=== PATIENT | male | born 1990 | race Caucasian/White ===

== ENCOUNTER 2016-10-26 15:49 | Emergency (ER) | payer OTHER ==
[~2016-10-26] VITALS: Ht 182.9 cm; Wt 130.6 kg
[~2016-10-26 15:49] MED LIST: CELEXA20 MG PO; CILOXAN 0.100 DROP/5 BOTH EYES; CLARITIN; DESYREL100 MG PO; FLEXERIL10 MG PO; FLOVENT; IBUPROFEN200 M1 PO; MOTRIN800 MG PO; PREDNISONE10 M1 PO; PROAIR HFA8.5 GM IH; ULTRAM50 MG PO; VENTOLIN17 GM IH; ZITHROMAX Z-PA250 MG PO
[2016-10-26] MEDS ORDERED: AUGMENTIN500 MG PO (16:40)
[2016-10-26 16:44] VITALS: BP 125/69
== END 2016-10-26 16:52 | disposition home or self-care (01) ==
LOC: EXP 15:49 → EME 15:49 → EXP 16:52
PROC: 3E1B78Z Irrigation of Ear using Irrigating Substance, Via Natural or Artificial Opening (ICD-10-PCS; principal; 2016-10-26)
DX: H66.91 Otitis media, unspecified, right ear (principal); H61.21 Impacted cerumen, right ear; R05 Cough
CPT/HCPCS: 99281; 99284

== ENCOUNTER 2016-12-10 11:49 | Emergency (ER) | payer OTHER ==
[~2016-12-10] VITALS: Ht 182.9 cm; Wt 129.9 kg
[~2016-12-10 11:49] MED LIST changes: +AUGMENTIN500 MG PO
[2016-12-10] MEDS ORDERED: NAPROSYN500 MG PO (14:07)
[2016-12-10] MEDS ORDERED: AMOXICILLIN500 M1 PO (14:07)
[2016-12-10 14:14] VITALS: BP 148/83
== END 2016-12-10 14:19 | disposition home or self-care (01) ==
LOC: EME 11:49 → EXP 11:49
DX: H66.91 Otitis media, unspecified, right ear (principal); R51 Headache; F17.200 Nicotine dependence, unspecified, uncomplicated
CPT/HCPCS: 99281; 99284

== ENCOUNTER 2017-02-18 15:05 | Emergency (ER) | payer OTHER ==
[~2017-02-18] VITALS: Ht 182.9 cm; Wt 131.4 kg
[~2017-02-18 15:05] MED LIST changes: +AMOXICILLIN500 M1 PO; +NAPROSYN500 MG PO
[2017-02-18 15:20] VITALS: BP 156/100
[2017-02-19] MEDS ORDERED: FLEXERIL10 MG PO (12:35)
[2017-02-19] MEDS ORDERED: NAPROSYN500 MG PO (12:35)
[2017-02-19] MEDS ORDERED: LIDODERM 5% P1 PATCH TD (12:35)
== END 2017-02-18 19:10 | disposition left against medical advice (07) ==
LOC: EME 15:05
DX: M25.551 Pain in right hip (principal); M25.552 Pain in left hip; M54.5 Low back pain; Z53.21 Procedure and treatment not carried out due to patient leaving prior to being seen by health care provider

== ENCOUNTER 2017-02-19 11:30 | Emergency (ER) | payer OTHER ==
[~2017-02-19] VITALS: Ht 182.9 cm; Wt 130.8 kg
[2017-02-19] MEDS ORDERED: NAPROSYN500 MG PO (12:35)
[2017-02-19] MEDS ORDERED: FLEXERIL10 MG PO (12:35)
[2017-02-19] MEDS ORDERED: LIDODERM 5% P1 PATCH TD (12:35)
[2017-02-19 12:44] VITALS: BP 127/80
== END 2017-02-19 12:48 | disposition home or self-care (01) ==
LOC: EME 11:30
DX: G89.29 Other chronic pain (principal); M54.41 Lumbago with sciatica, right side; S39.012A Strain of muscle, fascia and tendon of lower back, initial encounter; X50.0XXA Overexertion from strenuous movement or load, initial encounter; Y99.0 Civilian activity done for income or pay; F17.200 Nicotine dependence, unspecified, uncomplicated; J45.909 Unspecified asthma, uncomplicated
CPT/HCPCS: 99281; 99284; J1100

== ENCOUNTER 2017-03-02 07:37 | Day surgery (SDC) | payer OTHER ==
[~2017-03-02] VITALS: Ht 182.9 cm; Wt 125.0 kg
[~2017-03-02 07:37] MED LIST changes: +LIDODERM 5% P1 PATCH TD
[2017-03-02 08:05] VITALS: BP 143/89
[2017-03-02 14:24] VITALS: BP 124/59
[2017-03-02 15:05] VITALS: BP 145/84
== END 2017-03-02 19:22 | disposition home or self-care (01) ==
LOC: SDC 07:37 → 2EAST 07:38 → SDC 09:55 → 2EAST 19:22
PROC: 0QSJ04Z Reposition Right Fibula with Internal Fixation Device, Open Approach (ICD-10-PCS; principal; 2017-03-02)
DX: S82.841A Displaced bimalleolar fracture of right lower leg, initial encounter for closed fracture (principal); W10.9XXA Fall (on) (from) unspecified stairs and steps, initial encounter; Y93.01 Activity, walking, marching and hiking; Y92.009 Unspecified place in unspecified non-institutional (private) residence as the place of occurrence of the external cause; F17.210 Nicotine dependence, cigarettes, uncomplicated
CPT/HCPCS: 73610; 76000; C1713; G0378; J0131; J1100; J1170; J2175; J2250; J2405; J2795; J3010; J7030

== ENCOUNTER 2017-03-25 19:24 | Emergency (ER) | payer OTHER ==
[~2017-03-25] VITALS: Ht 185.4 cm; Wt 131.4 kg
[2017-03-25] MEDS ORDERED: XARELTO15 MG PO (21:44)
[2017-03-25 22:07] VITALS: BP 140/83
== END 2017-03-25 22:08 | disposition home or self-care (01) ==
LOC: EME 19:24
DX: I82.4Z1 Acute embolism and thrombosis of unspecified deep veins of right distal lower extremity (principal); J45.909 Unspecified asthma, uncomplicated; F17.200 Nicotine dependence, unspecified, uncomplicated
CPT/HCPCS: 93971; 99281; 99284

== ENCOUNTER 2017-03-28 08:30 | Emergency (ER) | payer OTHER ==
[~2017-03-28] VITALS: Ht 182.9 cm; Wt 133.7 kg
[~2017-03-28 08:30] MED LIST changes: +XARELTO15 MG PO
[2017-03-28 10:22] LABS: EOSINOPHIL (%) 0 % (0-5); HEMATOCRIT 46.1 % (38.0-50.0); IMMATURE GRANULOCYTE (%) 0.3 % (0.0-0.7); INSTRUMENT ABS NEUTROPHIL CT 6.7 K/uL; LYMPHOCYTE COUNT 2.1 K/uL (1.0-2.8); MCH 29.2 PG (29.0-34.0); MCHC 33.6 G/DL (30.0-36.0); MEAN PLAT.VOLUME 11.2 uM^3 (9.0-12.4); MONOCYTE (%) 6.5 % (3-12); MONOCYTE COUNT 0.6 K/uL (0-0.8); NEUTROPHIL (%) 70.7 % (45-76); NEUTROPHIL COUNT 6.7 K/uL (1.8-6.4); PLATELET COUNT 222 K/uL (156-360); RBC DIS.WIDTH-CV 12.5 % (11.8-14.6); RBC DIS.WIDTH-SD 39.4 % (39-53); WHITE BLOOD COUNT 9.4 K/uL (4.1-10.2)
[2017-03-28 10:29] LABS: INTER. NORMALIZED RATIO 1.1; PROTHROMBIN TIME 10.9 (9.2-11.2)
[2017-03-28 10:33] LABS: CHLORIDE 109 mEq/L (99-109); POTASSIUM 3.6 mEq/L (3.7-5.4)
[2017-03-28 10:34] LABS: SODIUM 142 mEq/L (136-147)
[2017-03-28 10:35] LABS: GLUCOSE 100 mg/dL (70-99)
[2017-03-28 10:37] LABS: ANION GAP 11 MEQ/L (2-14)
[2017-03-28 10:39] LABS: GFR ESTIMATE (CALCULATED) > 59 mL/min/
[2017-03-28 10:40] LABS: UREA NITROGEN (BUN) 9 mg/dL (9-23)
[2017-03-28 12:20] VITALS: BP 122/79
== END 2017-03-28 12:21 | disposition home or self-care (01) ==
LOC: EME 08:30
PROVIDERS: Emergency Medicine
DX: R07.9 Chest pain, unspecified (principal); F17.200 Nicotine dependence, unspecified, uncomplicated; Z86.718 Personal history of other venous thrombosis and embolism; Z79.01 Long term (current) use of anticoagulants
CPT/HCPCS: 71275; 80048; 85025; 85610; 93005; 99281; 99284; J2270; J7030

== ENCOUNTER 2017-05-01 09:43 | Emergency (ER) | payer OTHER ==
[~2017-05-01] VITALS: Ht 182.9 cm; Wt 117.0 kg
[2017-05-01] MEDS ORDERED: ULTRAM50 MG PO (12:40)
[2017-05-01] MEDS ORDERED: FLEXERIL10 MG PO (12:40)
[2017-05-01 12:52] VITALS: BP 128/77
== END 2017-05-01 12:53 | disposition home or self-care (01) ==
LOC: EME 09:43
DX: S86.911A Strain of unspecified muscle(s) and tendon(s) at lower leg level, right leg, initial encounter (principal); X58.XXXA Exposure to other specified factors, initial encounter; Y93.01 Activity, walking, marching and hiking; M85.871 Other specified disorders of bone density and structure, right ankle and foot; Z79.01 Long term (current) use of anticoagulants; Z98.890 Other specified postprocedural states; F17.200 Nicotine dependence, unspecified, uncomplicated
CPT/HCPCS: 73610; 99281; 99284

== ENCOUNTER 2017-12-06 12:10 | Emergency (ER) | payer OTHER ==
[~2017-12-06] VITALS: Ht 185.4 cm; Wt 140.3 kg
[2017-12-06 13:44] LABS: HEMATOCRIT 43.4 % (38.0-50.0); HEMOGLOBIN 14.9 G/DL (12.5-16.6); MCH 30.3 PG (29.0-34.0); MCHC 34.3 G/DL (30.0-36.0); MCV 88.2 FL (86-99); PLATELET COUNT 208 K/uL (156-360); RBC DIS.WIDTH-CV 12.4 % (11.8-14.6); RBC DIS.WIDTH-SD 40.4 % (39-53); RED BLOOD COUNT 4.92 M/uL (4.00-5.50); WHITE BLOOD COUNT 6.9 K/uL (4.1-10.2)
[2017-12-06 13:54] LABS: ALBUMIN 3.9 g/dL (3.2-4.8); CHLORIDE 109 mEq/L (99-109); POTASSIUM 4.2 mEq/L (3.7-5.4); SODIUM 141 mEq/L (136-147)
[2017-12-06 13:57] LABS: GLUCOSE 79 mg/dL (70-99); TOTAL PROTEIN 6.9 g/dL (6.4-8.3)
[2017-12-06 13:59] LABS: TOTAL BILIRUBIN 0.6 mg/dL (0.0-1.0)
[2017-12-06 14:00] LABS: ALKALINE PHOSPHATASE 95 IU/L (3-129); GFR ESTIMATE (CALCULATED) > 59 mL/min/ (58.99-99999)
[2017-12-06 14:02] LABS: AST (GOT) 21 IU/L (2-34); UREA NITROGEN (BUN) 13 mg/dL (9-23)
[2017-12-06 14:03] LABS: ALT (GPT) 18 IU/L (3-49)
[2017-12-06 14:04] LABS: LIPASE 14 U/L (1.0-51.0)
[2017-12-06] MEDS ORDERED: FIORICET 50-301 EAC1 PO (15:08)
[2017-12-06] MEDS ORDERED: ZOFRAN ODT8 MG PO (15:08)
[2017-12-06] MEDS ORDERED: PEPCID20 MG PO (15:08)
[2017-12-06] MEDS ORDERED: CARAFATE1 GM PO (15:08)
[2017-12-06 15:22] VITALS: BP 155/75
== END 2017-12-06 15:23 | disposition home or self-care (01) ==
LOC: EME 12:10
PROVIDERS: Physician Assistant
DX: K29.70 Gastritis, unspecified, without bleeding (principal); R51 Headache; J45.909 Unspecified asthma, uncomplicated; F17.200 Nicotine dependence, unspecified, uncomplicated; Z86.718 Personal history of other venous thrombosis and embolism; F32.9 Major depressive disorder, single episode, unspecified
CPT/HCPCS: 80053; 83690; 85027; 99281; 99284

== ENCOUNTER 2017-12-24 13:38 | Emergency (ER) | payer OTHER ==
[~2017-12-24] VITALS: Ht 182.9 cm; Wt 141.3 kg
[~2017-12-24 13:38] MED LIST changes: +CARAFATE1 GM PO; +FIORICET 50-301 EAC1 PO; +PEPCID20 MG PO; +ZOFRAN ODT8 MG PO
[2017-12-24] MEDS ORDERED: TESSALON200 MG PO (14:54)
[2017-12-24] MEDS ORDERED: PEN-VEE K,VEET500 MG PO (14:54)
[2017-12-24] MEDS ORDERED: NAPROSYN500 MG PO (14:54)
[2017-12-24] MEDS ORDERED: GUAIFENESIN600 M1 PO (14:54)
[2017-12-24 15:07] VITALS: BP 128/75
== END 2017-12-24 15:10 | disposition home or self-care (01) ==
LOC: EME 13:38
DX: J02.0 Streptococcal pharyngitis (principal); J30.9 Allergic rhinitis, unspecified; F17.210 Nicotine dependence, cigarettes, uncomplicated
CPT/HCPCS: 87651 90; 99281; 99283; J1885

== ENCOUNTER 2018-03-03 22:01 | Emergency (ER) | payer OTHER ==
[~2018-03-03] VITALS: Ht 182.9 cm; Wt 135.4 kg
[~2018-03-03 22:01] MED LIST changes: +GUAIFENESIN600 M1 PO; +PEN-VEE K,VEET500 MG PO; +TESSALON200 MG PO
[2018-03-03 22:10] VITALS: BP 148/83
[2018-03-03] MEDS ORDERED: LIDODERM 5% P1 PATCH TD (23:02)
[2018-03-03] MEDS ORDERED: FLEXERIL10 MG PO (23:02)
== END 2018-03-03 23:23 | disposition home or self-care (01) ==
LOC: EME 22:01
DX: M54.9 Dorsalgia, unspecified (principal); M54.30 Sciatica, unspecified side; Z86.69 Personal history of other diseases of the nervous system and sense organs; Z87.39 Personal history of other diseases of the musculoskeletal system and connective tissue
CPT/HCPCS: 99281; 99283; J1885

== ENCOUNTER 2018-03-07 21:04 | Emergency (ER) | payer OTHER ==
[~2018-03-07] VITALS: Ht 182.9 cm; Wt 134.5 kg
[2018-03-07] MEDS ORDERED: KEFLEX500 MG PO (22:34)
[2018-03-07] MEDS ORDERED: BACTRIM,SEPT1 TABLET PO (22:34)
[2018-03-07 22:47] VITALS: BP 146/85
== END 2018-03-07 22:48 | disposition home or self-care (01) ==
LOC: EME 21:04
DX: L02.02 Furuncle of face (principal)
CPT/HCPCS: 99281; 99284

== ENCOUNTER 2018-03-19 22:10 | Emergency (ER) | payer OTHER ==
[~2018-03-19] VITALS: Ht 182.9 cm; Wt 132.8 kg
[~2018-03-19 22:10] MED LIST changes: +BACTRIM,SEPT1 TABLET PO; +KEFLEX500 MG PO
[2018-03-20] MEDS ORDERED: ALLEGRA-D 121 TABLET PO (00:13)
[2018-03-20] MEDS ORDERED: AUGMENTIN875 MG PO (00:13)
[2018-03-20] MEDS ORDERED: FLONASE16 G1 BOTH NARES (00:13)
[2018-03-20 00:25] VITALS: BP 104/67
== END 2018-03-20 00:25 | disposition home or self-care (01) ==
LOC: EXP 22:10 → EME 22:10 → EXP 03-20 00:25
DX: J32.9 Chronic sinusitis, unspecified (principal); J02.9 Acute pharyngitis, unspecified
CPT/HCPCS: 99281; 99283